=== PATIENT | male | born 1955 | race Caucasian/White ===

== ENCOUNTER 2020-01-04 07:12 | Inpatient (IN) ==
[2020-01-04] MEDS ORDERED: DEXTROSE 50% 25 GM/50 ML VIAL IV PRN ×2 (10:55)
[2020-01-04] MEDS ORDERED: CEFUROXIME INJ 1,500 MG in SYRINGE 1 EACH IV ONE (10:55)
[2020-01-04] MEDS ORDERED: GLUCAGON 1 MG VIAL IM PRN ×2 (10:55)
[2020-01-04] MEDS ORDERED: INSULIN LISPRO 100 UNIT/ML SUBCUT SCH (11:30)
[2020-01-04 11:34] LABS: Basophils # 0.2 10*3/uL (0.0-0.2); Basophils % 1.9 % (0.0-0.8); Eosinophils # 0.5 10*3/uL (0.0-0.87); Eosinophils % 6.3 % (0.00-10.9); Hematocrit 39.3 VOL% (42.0-52.0); Hemoglobin 12.8 GM/DL (14.0-18.0); Immature Granulocytes % 0.2 %; Immature Granulocytes Absolute 0.02 #; Lymphocytes # 1.5 10*3/uL (1.4-4.0); Lymphocytes % 17.9 % (21.2-54.2); Mean Corpuscular HGB Conc 32.6 GM/DL (32-36); Mean Corpuscular Volume 92.7 FL (87-102); Mean Platelet Volume 9.8 FL (9.6-12.0); Monocytes % 13.2 % (1.7-12.7); Neutrophils % 60.5 % (38.7-73.9); Platelet Count 233 T/CUMM (130-400); Red Blood Count 4.24 MC/CUMM (3.8-5.5); White Blood Count 8.3 T/CUMM (4-12)
[2020-01-04 11:47] LABS: ABG Base Excess 2.4 MMOL/L (-2.5-2.5); ABG HCO3 26.5 MMOL/L (20-26); ABG Oxygen Saturation 96.9 % (95-100); ABG PCO2 37.4 MM HG (35-48); ABG PH 7.453 (7.35-7.45); ABG TCO2 22.8 MMOL/L (23-27)
[2020-01-04 12:04] LABS: Albumin 3.6 G/DL (3.4-5.0); Bilirubin,Total 0.5 MG/DL (0.2-1.0); Osmolality,Calculated 276.8 MOS/KG (273-304); Total Protein 7.4 G/DL (6.4-8.3)
[2020-01-04] MEDS: SODIUM CHLORIDE 0.9% 1,000 ML IV SCH (12:54)
[2020-01-04] MEDS: INSULIN LISPRO 100 UNIT/ML SUBCUT SCH ×3 (12:55→21:42)
[2020-01-04] MEDS ORDERED: oxyCODONE/ACETAMINOPHEN 5-325 MG TABLET PO PRN (13:04)
[2020-01-04] MEDS ORDERED: hydrALAZINE 20 MG/1 ML VIAL IV PRN (13:06)
[2020-01-04] MEDS ORDERED: CLORAZEPATE 3.75 MG TABLET PO PRN (13:06)
[2020-01-04] MEDS ORDERED: ZALEPLON 5 MG CAPSULE PO PRN (13:07)
[2020-01-04] MEDS ORDERED: NITROGLYCERIN SL 0.4 MG TABLET SL PRN (13:10)
[2020-01-04] MEDS: CHLORHEXIDINE 4% SOLN 118 ML BOTTLE TOP SCH ×2 (14:18→22:06)
[2020-01-04] MEDS: oxyCODONE/ACETAMINOPHEN 5-325 MG TABLET PO PRN (20:20)
[2020-01-04] MEDS: CHLORHEXIDINE 0.12% ORAL RINSE 60 ML BOTTLE SWISH/SPIT SCH (22:04)
[2020-01-05] MEDS ORDERED: PAPAVERINE 60 MG/2 ML VIAL ONE (04:21)
[2020-01-05] MEDS ORDERED: VANCOMYCIN 1,000 MG VIAL ONE (04:21)
[2020-01-05] MEDS ORDERED: VANCOMYCIN 500 MG VIAL ONE (04:21)
[2020-01-05] MEDS: CHLORHEXIDINE 0.12% ORAL RINSE 60 ML BOTTLE SWISH/SPIT SCH ×2 (08:45→20:46)
[2020-01-05] MEDS: LISINOPRIL/HCTZ 20-25 MG TABLET PO SCH (08:45)
[2020-01-05] MEDS: INSULIN LISPRO 100 UNIT/ML SUBCUT SCH ×4 (08:49→20:23)
[2020-01-05] MEDS: SODIUM CHLORIDE 0.9% 1,000 ML IV SCH (12:02)
[2020-01-05] MEDS: sitaGLIPtin 100 MG TABLET PO SCH (12:03)
[2020-01-05] MEDS: ESCITALOPRAM 10 MG TABLET PO SCH (12:03)
[2020-01-05] MEDS: oxyCODONE/ACETAMINOPHEN 5-325 MG TABLET PO PRN ×2 (12:10→20:48)
[2020-01-05] MEDS: CHLORHEXIDINE 4% SOLN 118 ML BOTTLE TOP SCH ×2 (14:24→19:55)
[2020-01-05] MEDS ORDERED: POTASSIUM CHLORIDE 20 MEQ TABLET PO ONE (22:30)
[2020-01-06] MEDS ORDERED: VANCOMYCIN 1,000 MG VIAL ONE (04:23)
[2020-01-06] MEDS ORDERED: PAPAVERINE 60 MG/2 ML VIAL ONE (04:23)
[2020-01-06] MEDS ORDERED: VANCOMYCIN 500 MG VIAL ONE (04:23)
[2020-01-06] MEDS ORDERED: LIDOCAINE 2% 5 ML VIAL ONE ×2 (05:52→11:20)
[2020-01-06] MEDS ORDERED: SUFentanil 250 MCG/5 ML AMP ONE (05:52)
[2020-01-06] MEDS ORDERED: ETOMIDATE 40 MG/20 ML VIAL IV ONE (05:53)
[2020-01-06] MEDS ORDERED: MIDAZOLAM 10 MG/2 ML VIAL ONE (05:53)
[2020-01-06] MEDS ORDERED: PHENYLEPHRINE DRIP 20 MG/250 ML PREMIX IV ONE (05:53)
[2020-01-06] MEDS ORDERED: CALCIUM CHLORIDE 1,000 MG/10 ML VIAL IV ONE ×2 (05:53→11:35)
[2020-01-06] MEDS ORDERED: HEPARIN/NACL 0.9% 2 UNITS/ML 500 ML IV ONE (05:53)
[2020-01-06] MEDS ORDERED: LACTATED RINGERS 1,000 ML IV ONE (05:54)
[2020-01-06] MEDS ORDERED: SODIUM CHLORIDE 0.9% 250 ML IV ONE (05:54)
[2020-01-06] MEDS ORDERED: AMINOCAPROIC ACID 5,000 MG/20 ML VIAL ONE (05:54)
[2020-01-06] MEDS ORDERED: VECURONIUM 10 MG VIAL IV ONE (05:54)
[2020-01-06] MEDS ORDERED: SODIUM CHLORIDE 0.9% 100 ML IV ONE (05:54)
[2020-01-06] MEDS ORDERED: NITROGLYCERIN DRIP 50 MG/250 ML BOTTLE IV ONE (05:54)
[2020-01-06] MEDS ORDERED: PHENYLEPHRINE 1 MG/10 ML SYRINGE IV ONE (05:54)
[2020-01-06] MEDS ORDERED: CEFUROXIME INJ 1,500 MG in SYRINGE 1 EACH IV ONE (06:00)
[2020-01-06 07:03] LABS: Calcium 9.6 MG/DL (8.5-10.1)
[2020-01-06 07:33] LABS: ABG Base Excess -0.2 MMOL/L (-2.5-2.5); ABG HCO3 24.3 MMOL/L (20-26); ABG PCO2 44.8 MM HG (35-48); ABG PH 7.363 (7.35-7.45); ABG TCO2 22.2 MMOL/L (23-27); Glucose Heart Surgery 174 MG/DL (74-106); Hematocrit Heart Surgery 41.7 PERCENT (42-52); Hemoglobin Heart Surgery 13.6 G/DL (14.0-18.0); Ionized Calcium Arterial 1.19 MMOL/L (1.21-1.46); PCO2 Patient Temp Arterial 44.8 MMHG; PH Patient Temp Arterial 7.363; Patient Temperature 37 CELCIUS; Potassium Heart/CVR 3.7 MMOL/L (3.5-5.1); Sodium Heart/CVR 138 MMOL/L (135-145)
[2020-01-06] MEDS ORDERED: PHENYLEPHRINE DRIP 40 MG/250 ML PREMIX IV ONE (08:16)
[2020-01-06] MEDS ORDERED: EPINEPHrine 1 MG/10 ML SYRINGE ONE (08:17)
[2020-01-06] MEDS ORDERED: ALBUMIN 5% 12.5 GM/250 ML VIAL IV ONE (08:17)
[2020-01-06] MEDS ORDERED: CALCIUM CHLORIDE 1,000 MG/10 ML SYRINGE IV ONE (08:17)
[2020-01-06 08:28] LABS: Apearance,Urine CLEAR (Clear); Bilirubin,Urine Negative (Negative); Blood, Urine Small mg/dL (Negative); Glucose,Urine (UA) Negative (Negative); Ketones,Urine Negative (Negative); Nitrite,Urine Negative (Negative); Protein,Urine Negative; RBC,Urine 1 /HPF (0-4); Squamous Epithelial Cell,Urine Occasional /HPF (0-10); Urine Color Yellow (Yellow); Urine Specific Gravity 1.014 (1.001-1.035); Urine Urobilinogen < 2.0 EU/DL (0.2-1.0); WBC,Urine 1 /HPF (0-6)
[2020-01-06 09:37] LABS: Hematocrit Heart Surgery 29.3 PERCENT (42-52); Hemoglobin Heart Surgery 9.5 G/DL (14.0-18.0); PCO2 Patient Temp Venous 39.3 MM HG; PH Patient Temp Venous 7.397; PO2 Patient Temp Venous 37.5 MM HG; Potassium Heart/CVR 4.4 MMOL/L (3.5-5.1); VBG Base Excess -0.4 MEQ/L (0-4); VBG HCO3 23.7 MEQ/L (24-28); VBG Oxygen Saturation 76.1 %; VBG PCO2 43.3 MMHG (41-51); VBG PH 7.369
[2020-01-06 10:10] LABS: Hematocrit Heart Surgery 31.6 PERCENT (42-52); Hemoglobin Heart Surgery 10.2 G/DL (14.0-18.0); PCO2 Patient Temp Venous 34.9 MM HG; PH Patient Temp Venous 7.421; PO2 Patient Temp Venous 39.2 MM HG; Potassium Heart/CVR 4.3 MMOL/L (3.5-5.1); VBG Base Excess -1.3 MEQ/L (0-4); VBG HCO3 23.1 MEQ/L (24-28); VBG Oxygen Saturation 82.4 %; VBG PCO2 40.3 MMHG (41-51); VBG PH 7.378; VBG PO2 48.3 MMHG (17-40)
[2020-01-06 10:44] LABS: Hematocrit Heart Surgery 31.3 PERCENT (42-52); Hemoglobin Heart Surgery 10.1 G/DL (14.0-18.0); PCO2 Patient Temp Venous 37.8 MM HG; PH Patient Temp Venous 7.42; PO2 Patient Temp Venous 34.7 MM HG; Potassium Heart/CVR 4.8 MMOL/L (3.5-5.1); VBG Base Excess 0.3 MEQ/L (0-4); VBG HCO3 24.3 MEQ/L (24-28); VBG Oxygen Saturation 72.6 %; VBG PCO2 41.6 MMHG (41-51); VBG PH 7.391; VBG PO2 39.9 MMHG (17-40)
[2020-01-06] MEDS: CHLORHEXIDINE 4% SOLN 118 ML BOTTLE TOP SCH (11:07)
[2020-01-06] MEDS: INSULIN LISPRO 100 UNIT/ML SUBCUT SCH ×2 (11:07→11:09)
[2020-01-06] MEDS: LISINOPRIL/HCTZ 20-25 MG TABLET PO SCH (11:08)
[2020-01-06] MEDS: SODIUM CHLORIDE 0.9% 1,000 ML IV SCH (11:08)
[2020-01-06] MEDS: CHLORHEXIDINE 0.12% ORAL RINSE 60 ML BOTTLE SWISH/SPIT SCH ×2 (11:08→20:57)
[2020-01-06] MEDS: ESCITALOPRAM 10 MG TABLET PO SCH (11:08)
[2020-01-06] MEDS: sitaGLIPtin 100 MG TABLET PO SCH (11:08)
[2020-01-06] MEDS ORDERED: THROMBIN TOPICAL (RECOMBINANT) 5,000 UNIT VIAL TOP ONE (11:14)
[2020-01-06] MEDS ORDERED: ALBUTEROL INHALER 8 GM INH ONE (11:16)
[2020-01-06] MEDS ORDERED: DEXTROSE 5% KCL 20 MEQ 20 MEQ/1,000 ML BAG IV ONE (11:20)
[2020-01-06] MEDS ORDERED: MANNITOL 100 GM/500 ML BAG IV ONE (11:20)
[2020-01-06] MEDS ORDERED: ALBUMIN 25% 25 GM/100 ML VIAL IV ONE (11:21)
[2020-01-06] MEDS ORDERED: FUROSEMIDE 20 MG/2 ML VIAL ONE (11:21)
[2020-01-06] MEDS ORDERED: HEPARIN 10,000 UNIT/10 ML VIAL ONE (11:21)
[2020-01-06] MEDS ORDERED: methylPREDNISolone SOD SUC 1,000 MG/8 ML VIAL ONE (11:21)
[2020-01-06] MEDS ORDERED: MAGNESIUM SULFATE 5 GM/10 ML VIAL IV ONE (11:21)
[2020-01-06] MEDS ORDERED: PROTAMINE SULFATE 250 MG/25 ML VIAL IV ONE (11:21)
[2020-01-06] MEDS ORDERED: SODIUM BICARBONATE 50 MEQ/50 ML VIAL IV ONE (11:21)
[2020-01-06] MEDS ORDERED: ALBUTEROL 2.5 MG/3 ML NEB RESP TX ONE (11:36)
[2020-01-06 11:43] LABS: ABG HCO3 21.9 MMOL/L (20-26); ABG Oxygen Saturation 99.6 % (95-100); ABG PCO2 41.5 MM HG (35-48); ABG PH 7.344 (7.35-7.45); ABG TCO2 20.4 MMOL/L (23-27); Glucose Heart Surgery 285 MG/DL (74-106); Hematocrit Heart Surgery 33.9 PERCENT (42-52); Ionized Calcium Arterial 1.23 MMOL/L (1.21-1.46); PCO2 Patient Temp Arterial 41.5 MMHG; PH Patient Temp Arterial 7.344; Patient Temperature 37 CELCIUS; Potassium Heart/CVR 3.8 MMOL/L (3.5-5.1); Sodium Heart/CVR 135 MMOL/L (135-145)
[2020-01-06] MEDS: PHENYLEPHRINE DRIP 40 MG/250 ML PREMIX IV PRN ×2 (12:22→23:56)
[2020-01-06] MEDS ORDERED: CHLORHEXIDINE 4% SOLN 118 ML BOTTLE TOP PRN (12:43)
[2020-01-06] MEDS ORDERED: VECURONIUM 10 MG VIAL IV PRN ×2 (12:43)
[2020-01-06] MEDS ORDERED: MIDAZOLAM 2 MG/2 ML VIAL IV PRN (12:43)
[2020-01-06] MEDS ORDERED: INSULIN REGULAR 100 UNIT/ML IV ONE (12:43)
[2020-01-06] MEDS ORDERED: DEXTROSE 10% 250 ML BAG IV PRN ×2 (12:43)
[2020-01-06] MEDS ORDERED: INSULIN REGULAR 100 UNIT/ML IV PRN (12:43)
[2020-01-06] MEDS ORDERED: ACETAMINOPHEN 650 MG SUPP RECTAL PRN (12:43)
[2020-01-06] MEDS ORDERED: MAGNESIUM SULF RIDER 2 GM in PREMIX 1 EACH IV PRN (12:43)
[2020-01-06] MEDS ORDERED: LACTATED RINGERS 250 ML IV PRN (12:43)
[2020-01-06] MEDS ORDERED: CALCIUM CHLORIDE 1,000 MG/10 ML SYRINGE IV PRN (12:43)
[2020-01-06] MEDS ORDERED: MORPHINE 10 MG/1 ML VIAL IV PRN (12:43)
[2020-01-06] MEDS ORDERED: SODIUM CHLORIDE 0.45% 1,000 ML IV SCH ×2 (12:43)
[2020-01-06] MEDS ORDERED: POTASSIUM CHLORIDE RIDER 10 MEQ in PREMIX 1 EACH IV PRN (12:43)
[2020-01-06] MEDS ORDERED: NITROPRUSSIDE 100 MG in DEXTROSE 5% 250 ML IV PRN (12:43)
[2020-01-06] MEDS ORDERED: MORPHINE 4 MG/1 ML VIAL IV PRN (12:43)
[2020-01-06] MEDS ORDERED: ONDANSETRON 4 MG/2 ML VIAL IV PRN (12:43)
[2020-01-06] MEDS ORDERED: MAGNESIUM SULF RIDER 4 GM in PREMIX 1 EACH IV PRN (12:43)
[2020-01-06 12:47] LABS: ABG Base Excess -2.2 MMOL/L (-2.5-2.5); ABG HCO3 22.5 MMOL/L (20-26); ABG Oxygen Saturation 97.3 % (95-100); ABG PCO2 51.6 MM HG (35-48); ABG PH 7.292 (7.35-7.45); ABG TCO2 22.5 MMOL/L (23-27); Glucose Heart Surgery 260 MG/DL (74-106); Hematocrit Heart Surgery 36.1 PERCENT (42-52); Hemoglobin Heart Surgery 11.7 G/DL (14.0-18.0); Potassium Heart/CVR 3.3 MMOL/L (3.5-5.1)
[2020-01-06 12:49] LABS: Basophils # 0.2 10*3/uL (0.0-0.2); Eosinophils # 0.4 10*3/uL (0.0-0.87); Hematocrit 35.3 VOL% (42.0-52.0); Hemoglobin 11.5 GM/DL (14.0-18.0); Immature Granulocytes % 0.9 %; Immature Granulocytes Absolute 0.18 #; Lymphocytes # 2.5 10*3/uL (1.4-4.0); Lymphocytes % 12.8 % (21.2-54.2); Mean Corpuscular HGB Conc 32.6 GM/DL (32-36); Mean Corpuscular Volume 93.4 FL (87-102); Mean Platelet Volume 10.3 FL (9.6-12.0); Monocytes % 7.6 % (1.7-12.7); Neutrophils % 75.7 % (38.7-73.9); Platelet Count 209 T/CUMM (130-400); Red Blood Count 3.78 MC/CUMM (3.8-5.5); Red Cell Distribution Width 13.1 % (9.3-17.3); White Blood Count 19.9 T/CUMM (4-12)
[2020-01-06] MEDS: POTASSIUM CHLORIDE RIDER 20 MEQ in PREMIX 1 EACH IV PRN ×3 (12:50→23:22)
[2020-01-06] MEDS ORDERED: POTASSIUM CHLORIDE RIDER 100 ML IV ONE (12:53)
[2020-01-06 13:03] LABS: CKMB % 7.9 %
[2020-01-06 13:06] LABS: Troponin I 1.97 NG/ML (0.00-0.045)
[2020-01-06 13:09] LABS: INR 1.2; Partial Thromboplastin Time 30.2 SECS (23.9-33.8)
[2020-01-06 13:10] LABS: Albumin 3.1 G/DL (3.4-5.0); Bilirubin,Total 0.7 MG/DL (0.2-1.0); Calcium 8.5 MG/DL (8.5-10.1); Osmolality,Calculated 288.5 MOS/KG (273-304); Total Protein 5.9 G/DL (6.4-8.3)
[2020-01-06] MEDS: ALBUMIN 5% 12.5 GM in PREMIX 1 EACH IV PRN ×2 (13:20→15:24)
[2020-01-06] MEDS: LACTATED RINGERS 1,000 ML IV PRN ×2 (13:53→20:20)
[2020-01-06 14:03] LABS: ABG Base Excess -2.4 MMOL/L (-2.5-2.5); ABG Oxygen Saturation 97.4 % (95-100); ABG PCO2 42.4 MM HG (35-48); ABG PH 7.353 (7.35-7.45); ABG PO2 108.9 MM HG (80-95); ABG TCO2 24.3 MMOL/L (23-27); Glucose Heart Surgery 215 MG/DL (74-106); Hemoglobin Heart Surgery 12.1 G/DL (14.0-18.0); Potassium Heart/CVR 3.7 MMOL/L (3.5-5.1)
[2020-01-06 14:24] LABS: VBG Base Excess -1.8 MEQ/L (0-4); VBG HCO3 22.5 MEQ/L (24-28); VBG Oxygen Saturation 76.9 %; VBG PCO2 49.1 MMHG (41-51); VBG PH 7.312; VBG PO2 47.7 MMHG (17-40)
[2020-01-06] MEDS ORDERED: SODIUM CHLORIDE 0.9% 1,000 ML IV ONE (14:34)
[2020-01-06] MEDS ORDERED: SEVOFLURANE 1 UNIT/15 MINUTE INH ONE (14:34)
[2020-01-06 15:06] LABS: ABG Base Excess -3.1 MMOL/L (-2.5-2.5); ABG HCO3 21.8 MMOL/L (20-26); ABG Oxygen Saturation 96.8 % (95-100); ABG PCO2 38.6 MM HG (35-48); ABG PO2 98.1 MM HG (80-95); Glucose Heart Surgery 222 MG/DL (74-106); Hemoglobin Heart Surgery 11.8 G/DL (14.0-18.0)
[2020-01-06] MEDS: INSULIN REGULAR DRIP 100 ML IV SCH (15:09)
[2020-01-06 16:02] LABS: ABG Base Excess -3.4 MMOL/L (-2.5-2.5); ABG HCO3 21.6 MMOL/L (20-26); ABG Oxygen Saturation 97.6 % (95-100); ABG PCO2 39.8 MM HG (35-48); ABG PH 7.349 (7.35-7.45); ABG PO2 97.7 MM HG (80-95); ABG TCO2 19.7 MMOL/L (23-27); Glucose Heart Surgery 243 MG/DL (74-106); Hematocrit Heart Surgery 34.7 PERCENT (42-52); Hemoglobin Heart Surgery 11.3 G/DL (14.0-18.0); Potassium Heart/CVR 4.2 MMOL/L (3.5-5.1)
[2020-01-06] MEDS: MIDAZOLAM 10 MG/2 ML VIAL IV PRN ×2 (17:07→19:45)
[2020-01-06 17:21] LABS: ABG Base Excess -3.2 MMOL/L (-2.5-2.5); ABG HCO3 21.7 MMOL/L (20-26); ABG Oxygen Saturation 97.6 % (95-100); ABG PCO2 38.7 MM HG (35-48); ABG PO2 98.1 MM HG (80-95); ABG TCO2 19.7 MMOL/L (23-27); Glucose Heart Surgery 230 MG/DL (74-106); Hematocrit Heart Surgery 34.4 PERCENT (42-52); Hemoglobin Heart Surgery 11.2 G/DL (14.0-18.0); Potassium Heart/CVR 4.1 MMOL/L (3.5-5.1)
[2020-01-06] MEDS ORDERED: HALOPERIDOL 5 MG/ML AMP IV ONE (18:33)
[2020-01-06 18:58] LABS: ABG Base Excess -2.6 MMOL/L (-2.5-2.5); ABG HCO3 22.3 MMOL/L (20-26); ABG PH 7.368 (7.35-7.45); ABG PO2 88.5 MM HG (80-95); ABG TCO2 20.2 MMOL/L (23-27); Glucose Heart Surgery 217 MG/DL (74-106); Hematocrit Heart Surgery 34.5 PERCENT (42-52); Hemoglobin Heart Surgery 11.2 G/DL (14.0-18.0); Potassium Heart/CVR 4.3 MMOL/L (3.5-5.1)
[2020-01-06] MEDS: ALBUTEROL/IPRATROPIUM 3 ML NEB RESP TX SCH (19:46)
[2020-01-06] MEDS: CEFUROXIME INJ 1,500 MG in SODIUM CHLORIDE 0.9% 100 ML IV SCH (19:55)
[2020-01-06 20:40] LABS: CKMB % 9.3 %
[2020-01-06 20:44] LABS: Troponin I 8.72 NG/ML (0.00-0.045)
[2020-01-06 23:08] LABS: ABG Base Excess -1.6 MMOL/L (-2.5-2.5); ABG Oxygen Saturation 96.2 % (95-100); ABG PCO2 37.7 MM HG (35-48); ABG PH 7.392 (7.35-7.45); ABG PO2 78.2 MM HG (80-95); ABG TCO2 20.7 MMOL/L (23-27); Glucose Heart Surgery 166 MG/DL (74-106); Hematocrit Heart Surgery 32.9 PERCENT (42-52); Hemoglobin Heart Surgery 10.6 G/DL (14.0-18.0)
[2020-01-07] MEDS: ALBUMIN 5% 12.5 GM in PREMIX 1 EACH IV PRN (00:33)
[2020-01-07 01:03] LABS: ABG Base Excess -1.2 MMOL/L (-2.5-2.5); ABG HCO3 23.4 MMOL/L (20-26); ABG Oxygen Saturation 97.6 % (95-100); ABG PCO2 36.4 MM HG (35-48); ABG PO2 86.6 MM HG (80-95); ABG TCO2 20.9 MMOL/L (23-27); Glucose Heart Surgery 141 MG/DL (74-106); Hematocrit Heart Surgery 31.9 PERCENT (42-52); Hemoglobin Heart Surgery 10.3 G/DL (14.0-18.0)
[2020-01-07] MEDS: ALBUTEROL/IPRATROPIUM 3 ML NEB RESP TX SCH ×4 (01:17→18:58)
[2020-01-07] MEDS: POTASSIUM CHLORIDE RIDER 20 MEQ in PREMIX 1 EACH IV PRN ×3 (01:30→04:37)
[2020-01-07 02:14] LABS: ABG Base Excess -1.6 MMOL/L (-2.5-2.5); ABG HCO3 23.1 MMOL/L (20-26); ABG Oxygen Saturation 97.1 % (95-100); ABG PCO2 35.3 MM HG (35-48); ABG PH 7.413 (7.35-7.45); ABG TCO2 20.5 MMOL/L (23-27); Glucose Heart Surgery 127 MG/DL (74-106); Potassium Heart/CVR 4.1 MMOL/L (3.5-5.1)
[2020-01-07] MEDS: INSULIN REGULAR DRIP 100 ML IV SCH (02:22)
[2020-01-07 03:11] LABS: ABG Base Excess -1.6 MMOL/L (-2.5-2.5); ABG Oxygen Saturation 96.4 % (95-100); ABG PCO2 35.9 MM HG (35-48); ABG PH 7.407 (7.35-7.45); ABG PO2 79.9 MM HG (80-95); ABG TCO2 20.6 MMOL/L (23-27); Glucose Heart Surgery 115 MG/DL (74-106); Hematocrit Heart Surgery 30.8 PERCENT (42-52); Hemoglobin Heart Surgery 9.9 G/DL (14.0-18.0); Potassium Heart/CVR 4.4 MMOL/L (3.5-5.1)
[2020-01-07 04:24] LABS: ABG Base Excess -2.2 MMOL/L (-2.5-2.5); ABG HCO3 21.5 MMOL/L (20-26); ABG Oxygen Saturation 93.8 % (95-100); ABG PCO2 32.8 MM HG (35-48); ABG PH 7.434 (7.35-7.45); ABG PO2 71.4 MM HG (80-95); ABG TCO2 22.5 MMOL/L (23-27); Basophils % 0.2 % (0.0-0.8); Glucose Heart Surgery 87 MG/DL (74-106); Hematocrit 27.8 VOL% (42.0-52.0); Hemoglobin 9.3 GM/DL (14.0-18.0); Hemoglobin Heart Surgery 10.2 G/DL (14.0-18.0); Immature Granulocytes % 0.4 %; Immature Granulocytes Absolute 0.05 #; Lymphocytes # 0.7 10*3/uL (1.4-4.0); Lymphocytes % 5.4 % (21.2-54.2); Mean Corpuscular HGB Conc 33.5 GM/DL (32-36); Mean Corpuscular Volume 90.8 FL (87-102); Mean Platelet Volume 10.7 FL (9.6-12.0); Monocytes % 6.1 % (1.7-12.7); Neutrophils % 87.9 % (38.7-73.9); Platelet Count 142 T/CUMM (130-400); Potassium Heart/CVR 4.1 MMOL/L (3.5-5.1); Red Blood Count 3.06 MC/CUMM (3.8-5.5); Red Cell Distribution Width 13.4 % (9.3-17.3); White Blood Count 13.6 T/CUMM (4-12)
[2020-01-07] MEDS ORDERED: FUROSEMIDE 40 MG/4 ML VIAL IV ONE ×2 (04:24→05:30)
[2020-01-07 04:44] LABS: Albumin 3.4 G/DL (3.4-5.0); Bilirubin,Direct 0.12 MG/DL (0.0-0.20); Bilirubin,Total 0.4 MG/DL (0.2-1.0); Calcium 8.5 MG/DL (8.5-10.1); Osmolality,Calculated 285.3 MOS/KG (273-304); Total Protein 5.8 G/DL (6.4-8.3)
[2020-01-07 04:58] LABS: CKMB % 12.3 %
[2020-01-07 04:59] LABS: Troponin I 22.8 NG/ML (0.00-0.045)
[2020-01-07] MEDS ORDERED: FUROSEMIDE 40 MG/4 ML VIAL ONE (05:12)
[2020-01-07 05:37] LABS: ABG Base Excess -2.4 MMOL/L (-2.5-2.5); ABG HCO3 22.4 MMOL/L (20-26); ABG Oxygen Saturation 96.5 % (95-100); ABG PCO2 32.4 MM HG (35-48); ABG PH 7.426 (7.35-7.45); ABG PO2 79.2 MM HG (80-95); ABG TCO2 19.4 MMOL/L (23-27); Glucose Heart Surgery 150 MG/DL (74-106); Hematocrit Heart Surgery 30.2 PERCENT (42-52); Hemoglobin Heart Surgery 9.8 G/DL (14.0-18.0); Potassium Heart/CVR 4.9 MMOL/L (3.5-5.1)
[2020-01-07 06:12] LABS: ABG Base Excess -2.4 MMOL/L (-2.5-2.5); ABG HCO3 22.4 MMOL/L (20-26); ABG Oxygen Saturation 95.3 % (95-100); ABG PCO2 31.9 MM HG (35-48); ABG PO2 72.4 MM HG (80-95); ABG TCO2 19.2 MMOL/L (23-27); Glucose Heart Surgery 180 MG/DL (74-106); Hematocrit Heart Surgery 31.3 PERCENT (42-52); Hemoglobin Heart Surgery 10.1 G/DL (14.0-18.0); Potassium Heart/CVR 4.5 MMOL/L (3.5-5.1)
[2020-01-07 07:06] LABS: ABG Base Excess -1.1 MMOL/L (-2.5-2.5); ABG HCO3 23.5 MMOL/L (20-26); ABG Oxygen Saturation 94.5 % (95-100); ABG PCO2 33.3 MM HG (35-48); ABG PH 7.438 (7.35-7.45); ABG PO2 66.7 MM HG (80-95); ABG TCO2 20.5 MMOL/L (23-27); Glucose Heart Surgery 169 MG/DL (74-106); Hematocrit Heart Surgery 30.8 PERCENT (42-52); Potassium Heart/CVR 4.2 MMOL/L (3.5-5.1)
[2020-01-07 07:53] LABS: ABG HCO3 24.4 MMOL/L (20-26); ABG Oxygen Saturation 94.1 % (95-100); ABG PCO2 32.9 MM HG (35-48); ABG PH 7.458 (7.35-7.45); ABG PO2 64.6 MM HG (80-95); ABG TCO2 21.2 MMOL/L (23-27); Glucose Heart Surgery 159 MG/DL (74-106); Hematocrit Heart Surgery 30.3 PERCENT (42-52); Hemoglobin Heart Surgery 9.8 G/DL (14.0-18.0)
[2020-01-07] MEDS ORDERED: ePHEDrine 50 MG/ML AMP ONE (08:08)
[2020-01-07 09:09] LABS: ABG Base Excess -0.9 MMOL/L (-2.5-2.5); ABG HCO3 23.6 MMOL/L (20-26); ABG Oxygen Saturation 93.6 % (95-100); ABG PH 7.453 (7.35-7.45); ABG PO2 64.1 MM HG (80-95); ABG TCO2 20.3 MMOL/L (23-27); Glucose Heart Surgery 179 MG/DL (74-106); Potassium Heart/CVR 4.3 MMOL/L (3.5-5.1)
[2020-01-07] MEDS ORDERED: HYDROmorphone 2 MG/1 ML VIAL IV PRN (10:08)
[2020-01-07] MEDS ORDERED: POTASSIUM CHLORIDE 20 MEQ TABLET PO PRN (10:11)
[2020-01-07] MEDS ORDERED: ALUMINUM/MAGNES/SIMETH MAX STR 30 ML UDCUP PO PRN (10:11)
[2020-01-07] MEDS ORDERED: MAGNESIUM SULF RIDER 2 GM in PREMIX 1 EACH IV PRN (10:11)
[2020-01-07] MEDS ORDERED: MAGNESIUM SULF RIDER 4 GM in PREMIX 1 EACH IV PRN (10:11)
[2020-01-07] MEDS ORDERED: ACETAMINOPHEN 325 MG TABLET PO PRN (10:11)
[2020-01-07] MEDS ORDERED: SODIUM CHLOR 0.45% KCL 20 MEQ 20 MEQ/1,000 ML BAG IV SCH (10:11)
[2020-01-07] MEDS ORDERED: MORPHINE 4 MG/1 ML VIAL IV PRN (10:11)
[2020-01-07] MEDS ORDERED: ZALEPLON 5 MG CAPSULE PO PRN (10:11)
[2020-01-07] MEDS ORDERED: MAGNESIUM HYDROXIDE SUSP 30 ML UDCUP PO PRN (10:11)
[2020-01-07] MEDS ORDERED: ONDANSETRON 4 MG/2 ML VIAL IV PRN (10:11)
[2020-01-07] MEDS ORDERED: DEXTROSE 50% 25 GM/50 ML VIAL IV PRN ×2 (10:11)
[2020-01-07] MEDS ORDERED: GLUCAGON 1 MG VIAL IM PRN ×2 (10:11)
[2020-01-07] MEDS: CEFUROXIME INJ 1,500 MG in SODIUM CHLORIDE 0.9% 100 ML IV SCH (10:14)
[2020-01-07] MEDS: CHLORHEXIDINE 0.12% ORAL RINSE 60 ML BOTTLE SWISH/SPIT SCH ×2 (10:14→21:10)
[2020-01-07] MEDS: INSULIN REGULAR 100 UNIT/ML SUBCUT SCH ×3 (14:35→21:09)
[2020-01-07] MEDS: oxyCODONE/ACETAMINOPHEN 5-325 MG TABLET PO PRN ×3 (14:38→21:50)
[2020-01-07] MEDS: HYDROmorphone 2 MG/1 ML VIAL IV PRN (21:08)
[2020-01-08] MEDS: oxyCODONE/ACETAMINOPHEN 5-325 MG TABLET PO PRN ×6 (01:41→22:31)
[2020-01-08] MEDS: HYDROmorphone 2 MG/1 ML VIAL IV PRN ×2 (02:38→20:39)
[2020-01-08] MEDS: ALBUTEROL/IPRATROPIUM 3 ML NEB RESP TX SCH ×2 (02:47→07:10)
[2020-01-08 05:26] LABS: Basophils % 0.1 % (0.0-0.8); Hematocrit 27.4 VOL% (42.0-52.0); Immature Granulocytes % 0.8 %; Immature Granulocytes Absolute 0.14 #; Lymphocytes # 0.5 10*3/uL (1.4-4.0); Lymphocytes % 2.9 % (21.2-54.2); Mean Corpuscular HGB Conc 32.8 GM/DL (32-36); Mean Corpuscular Volume 92.6 FL (87-102); Mean Platelet Volume 11.3 FL (9.6-12.0); Monocytes % 8.8 % (1.7-12.7); Neutrophils % 87.4 % (38.7-73.9); Platelet Count 156 T/CUMM (130-400); Red Blood Count 2.96 MC/CUMM (3.8-5.5); Red Cell Distribution Width 13.8 % (9.3-17.3); White Blood Count 17.7 T/CUMM (4-12)
[2020-01-08 05:57] LABS: Albumin 3.7 G/DL (3.4-5.0); Bilirubin,Direct 0.12 MG/DL (0.0-0.20); Bilirubin,Indirect 1.2 MG/DL (0.0-1.0); Bilirubin,Total 1.3 MG/DL (0.2-1.0); CKMB % 5.7 %; Calcium 8.4 MG/DL (8.5-10.1); Total Protein 6.9 G/DL (6.4-8.3)
[2020-01-08 05:58] LABS: Troponin I 28.4 NG/ML (0.00-0.045)
[2020-01-08] MEDS ORDERED: FUROSEMIDE 40 MG/4 ML VIAL IV ONE (06:00)
[2020-01-08 07:04] LABS: Band Neutrophils 1 % (0-10); Lymphocytes 4 % (20-55); Segmented Neutrophils 87 % (50-85); Total Cells Counted 100
[2020-01-08 07:05] LABS: Hypochromasia 1+; Microcytosis Slight
[2020-01-08 07:07] LABS: Platelet Estimate Adequate
[2020-01-08] MEDS: INSULIN REGULAR 100 UNIT/ML SUBCUT SCH ×4 (07:58→20:40)
[2020-01-08] MEDS ORDERED: LISINOPRIL/HCTZ 20-25 MG TABLET PO SCH (09:00)
[2020-01-08] MEDS: FERROUS SULFATE 325 MG TABLET PO SCH (09:14)
[2020-01-08] MEDS: DOCUSATE SODIUM 100 MG CAPSULE PO SCH (09:14)
[2020-01-08] MEDS: sitaGLIPtin 100 MG TABLET PO SCH (09:14)
[2020-01-08] MEDS: ESCITALOPRAM 10 MG TABLET PO SCH (09:14)
[2020-01-08] MEDS: PANTOPRAZOLE 40 MG TABLET PO SCH (09:15)
[2020-01-08] MEDS: ASPIRIN EC 325 MG TABLET PO SCH (09:15)
[2020-01-08] MEDS: CHLORHEXIDINE 0.12% ORAL RINSE 60 ML BOTTLE SWISH/SPIT SCH ×2 (09:20→20:43)
[2020-01-08] MEDS: LEVALBUTEROL 0.63 MG/3 ML NEB RESP TX SCH ×2 (13:15→19:15)
[2020-01-08] MEDS ORDERED: AMIODARONE INJ 150 MG in DEXTROSE 5% 100 ML IV ONE (20:30)
[2020-01-08] MEDS ORDERED: AMIODARONE INJ 450 MG in DEXTROSE 5% 241 ML IV SCH (20:40)
[2020-01-08] MEDS: ATORVASTATIN 20 MG TABLET PO SCH (20:40)
[2020-01-08] MEDS ORDERED: METOPROLOL TARTRATE 25 MG TABLET PO SCH ×2 (21:00)
[2020-01-08] MEDS ORDERED: MORPHINE 4 MG/1 ML VIAL IV ONE (23:59)
[2020-01-09] MEDS: oxyCODONE/ACETAMINOPHEN 5-325 MG TABLET PO PRN ×4 (00:10→20:15)
[2020-01-09] MEDS: LEVALBUTEROL 0.63 MG/3 ML NEB RESP TX SCH ×4 (00:17→19:25)
[2020-01-09] MEDS: HYDROmorphone 2 MG/1 ML VIAL IV PRN ×2 (01:46→23:40)
[2020-01-09] MEDS ORDERED: AMIODARONE INJ 450 MG in DEXTROSE 5% 241 ML IV SCH (03:33)
[2020-01-09 05:42] LABS: Basophils % 0.1 % (0.0-0.8); Eosinophils % 0.1 % (0.00-10.9); Hematocrit 31.5 VOL% (42.0-52.0); Hemoglobin 9.6 GM/DL (14.0-18.0); Immature Granulocytes % 0.9 %; Immature Granulocytes Absolute 0.16 #; Lymphocytes # 1.7 10*3/uL (1.4-4.0); Lymphocytes % 9.4 % (21.2-54.2); Mean Corpuscular HGB Conc 30.5 GM/DL (32-36); Mean Corpuscular Volume 99.1 FL (87-102); Mean Platelet Volume 11.3 FL (9.6-12.0); Monocytes % 12.6 % (1.7-12.7); Neutrophils % 76.9 % (38.7-73.9); Platelet Count 197 T/CUMM (130-400); Red Blood Count 3.18 MC/CUMM (3.8-5.5); Red Cell Distribution Width 13.6 % (9.3-17.3); White Blood Count 18.3 T/CUMM (4-12)
[2020-01-09 06:10] LABS: Calcium 8.3 MG/DL (8.5-10.1); Osmolality,Calculated 290.1 MOS/KG (273-304)
[2020-01-09 06:15] LABS: Albumin 3.9 G/DL (3.4-5.0); Bilirubin,Direct 0.15 MG/DL (0.0-0.20); Bilirubin,Total 1.1 MG/DL (0.2-1.0); CKMB % 3.7 %; Calcium 8.3 MG/DL (8.5-10.1); Osmolality,Calculated 289.2 MOS/KG (273-304); Total Protein 7.4 G/DL (6.4-8.3)
[2020-01-09 06:24] LABS: Troponin I 34.7 NG/ML (0.00-0.045)
[2020-01-09] MEDS: INSULIN REGULAR 100 UNIT/ML SUBCUT SCH ×4 (09:04→21:55)
[2020-01-09] MEDS: ASPIRIN EC 325 MG TABLET PO SCH (09:04)
[2020-01-09] MEDS: ESCITALOPRAM 10 MG TABLET PO SCH (09:04)
[2020-01-09] MEDS: METOPROLOL TARTRATE 25 MG TABLET PO SCH ×2 (09:05→21:55)
[2020-01-09] MEDS: PANTOPRAZOLE 40 MG TABLET PO SCH (09:05)
[2020-01-09] MEDS: DOCUSATE SODIUM 100 MG CAPSULE PO SCH (09:05)
[2020-01-09] MEDS: sitaGLIPtin 100 MG TABLET PO SCH (09:05)
[2020-01-09] MEDS: FERROUS SULFATE 325 MG TABLET PO SCH (09:05)
[2020-01-09] MEDS: CHLORHEXIDINE 0.12% ORAL RINSE 60 ML BOTTLE SWISH/SPIT SCH ×2 (09:06→21:55)
[2020-01-09] MEDS: AMIODARONE 200 MG TABLET PO SCH ×2 (09:38→21:54)
[2020-01-09] MEDS: CLORAZEPATE 3.75 MG TABLET PO PRN (14:07)
[2020-01-09] MEDS: ATORVASTATIN 20 MG TABLET PO SCH (21:55)
[2020-01-10] MEDS: LEVALBUTEROL 0.63 MG/3 ML NEB RESP TX SCH ×4 (00:50→18:45)
[2020-01-10] MEDS: oxyCODONE/ACETAMINOPHEN 5-325 MG TABLET PO PRN ×5 (01:32→22:00)
[2020-01-10 07:24] LABS: Basophils % 0.1 % (0.0-0.8); Eosinophils % 0.3 % (0.00-10.9); Hematocrit 29.2 VOL% (42.0-52.0); Hemoglobin 9.3 GM/DL (14.0-18.0); Immature Granulocytes % 0.8 %; Immature Granulocytes Absolute 0.11 #; Lymphocytes % 15.1 % (21.2-54.2); Mean Corpuscular HGB Conc 31.8 GM/DL (32-36); Mean Corpuscular Volume 93.3 FL (87-102); Mean Platelet Volume 11.5 FL (9.6-12.0); Monocytes % 10.1 % (1.7-12.7); Neutrophils % 73.6 % (38.7-73.9); Platelet Count 207 T/CUMM (130-400); Red Blood Count 3.13 MC/CUMM (3.8-5.5); Red Cell Distribution Width 13.2 % (9.3-17.3); White Blood Count 13.4 T/CUMM (4-12)
[2020-01-10 07:57] LABS: Albumin 3.5 G/DL (3.4-5.0); CKMB % 2.8 %; Calcium 8.3 MG/DL (8.5-10.1); Osmolality,Calculated 284.4 MOS/KG (273-304); Total Protein 7.1 G/DL (6.4-8.3)
[2020-01-10 07:58] LABS: Troponin I 25.1 NG/ML (0.00-0.045)
[2020-01-10] MEDS: ESCITALOPRAM 10 MG TABLET PO SCH (08:27)
[2020-01-10] MEDS: METOPROLOL TARTRATE 25 MG TABLET PO SCH ×2 (08:27→22:00)
[2020-01-10] MEDS: DOCUSATE SODIUM 100 MG CAPSULE PO SCH (08:27)
[2020-01-10] MEDS: ASPIRIN EC 325 MG TABLET PO SCH (08:28)
[2020-01-10] MEDS: PANTOPRAZOLE 40 MG TABLET PO SCH (08:28)
[2020-01-10] MEDS: CHLORHEXIDINE 0.12% ORAL RINSE 60 ML BOTTLE SWISH/SPIT SCH ×2 (08:28→22:00)
[2020-01-10] MEDS: FERROUS SULFATE 325 MG TABLET PO SCH (08:28)
[2020-01-10] MEDS: sitaGLIPtin 100 MG TABLET PO SCH (08:28)
[2020-01-10] MEDS: AMIODARONE 200 MG TABLET PO SCH ×2 (08:28→22:00)
[2020-01-10] MEDS: INSULIN REGULAR 100 UNIT/ML SUBCUT SCH ×4 (08:34→22:00)
[2020-01-10] MEDS: CLORAZEPATE 3.75 MG TABLET PO PRN (22:00)
[2020-01-10] MEDS: ATORVASTATIN 20 MG TABLET PO SCH (22:00)
[2020-01-11] MEDS: LEVALBUTEROL 0.63 MG/3 ML NEB RESP TX SCH ×2 (00:20→07:40)
[2020-01-11] MEDS: oxyCODONE/ACETAMINOPHEN 5-325 MG TABLET PO PRN (03:52)
[2020-01-11 06:34] LABS: Basophils % 0.3 % (0.0-0.8); Eosinophils # 0.1 10*3/uL (0.0-0.87); Eosinophils % 1.2 % (0.00-10.9); Hematocrit 29.9 VOL% (42.0-52.0); Hemoglobin 9.6 GM/DL (14.0-18.0); Immature Granulocytes % 1.4 %; Immature Granulocytes Absolute 0.15 #; Lymphocytes # 1.7 10*3/uL (1.4-4.0); Lymphocytes % 16.4 % (21.2-54.2); Mean Corpuscular HGB Conc 32.1 GM/DL (32-36); Mean Corpuscular Volume 93.4 FL (87-102); Mean Platelet Volume 10.8 FL (9.6-12.0); Monocytes % 12.9 % (1.7-12.7); Neutrophils % 67.8 % (38.7-73.9); Platelet Count 255 T/CUMM (130-400); Red Cell Distribution Width 12.9 % (9.3-17.3); White Blood Count 10.5 T/CUMM (4-12)
[2020-01-11 06:56] LABS: Alanine Aminotransferase 117 U/L (16-61); Albumin 3.3 G/DL (3.4-5.0); Alkaline Phosphatase 66 U/L (45-117); Aspartate Amino Transferase 52 U/L (0-37); Bilirubin,Indirect 1.1 MG/DL (0.0-1.0); Blood Urea Nitrogen 44 MG/DL (7-18); Calcium 8.8 MG/DL (8.5-10.1); Estimated Glom Filtration Rate 69 ML/MIN; Glucose 136 MG/DL (74-106); Osmolality,Calculated 287.7 MOS/KG (273-304); Total Protein 7.2 G/DL (6.4-8.3)
[2020-01-11 08:04] VITALS: BP 147/82
[2020-01-11] MEDS: INSULIN REGULAR 100 UNIT/ML SUBCUT SCH (08:50)
[2020-01-11] MEDS ORDERED: hydroCHLOROthiazide 25 MG TABLET PO SCH (09:00)
[2020-01-11] MEDS: DOCUSATE SODIUM 100 MG CAPSULE PO SCH (09:00)
[2020-01-11] MEDS: METOPROLOL TARTRATE 25 MG TABLET PO SCH (09:00)
[2020-01-11] MEDS: PANTOPRAZOLE 40 MG TABLET PO SCH (09:00)
[2020-01-11] MEDS: sitaGLIPtin 100 MG TABLET PO SCH (09:00)
[2020-01-11] MEDS: AMIODARONE 200 MG TABLET PO SCH (09:01)
[2020-01-11] MEDS: ASPIRIN EC 325 MG TABLET PO SCH (09:01)
[2020-01-11] MEDS: ESCITALOPRAM 10 MG TABLET PO SCH (09:01)
[2020-01-11] MEDS: FERROUS SULFATE 325 MG TABLET PO SCH (09:01)
[2020-01-11] MEDS: CHLORHEXIDINE 0.12% ORAL RINSE 60 ML BOTTLE SWISH/SPIT SCH (09:03)
== END 2020-01-11 12:00 | disposition home health service (06) | DRG 236 ==
LOC: N.TELEN 10:51 → N.CVR 01-06 11:58 → N.TELES 01-07 11:43

== ENCOUNTER 2020-02-21 09:35 | Inpatient (IN) ==
[2020-02-21] MEDS ORDERED: DEXTROSE 10% 250 ML BAG IV PRN (14:12)
[2020-02-21] MEDS ORDERED: GLUCAGON 1 MG VIAL IM PRN ×2 (14:12→14:16)
[2020-02-21] MEDS ORDERED: DEXTROSE 50% 25 GM/50 ML VIAL IV PRN (14:16)
[2020-02-21] MEDS ORDERED: SODIUM CHLORIDE 0.9% 1,000 ML IV SCH (14:30)
[2020-02-21 15:19] LABS: Basophils # 0.2 10*3/uL (0.0-0.2); Basophils % 1.7 % (0.0-0.8); Eosinophils # 0.4 10*3/uL (0.0-0.87); Eosinophils % 3.8 % (0.00-10.9); Hematocrit 34.6 VOL% (42.0-52.0); Hemoglobin 11.2 GM/DL (14.0-18.0); Immature Granulocytes % 0.9 %; Immature Granulocytes Absolute 0.09 #; Lymphocytes # 2.7 10*3/uL (1.4-4.0); Lymphocytes % 26.8 % (21.2-54.2); Mean Corpuscular HGB Conc 32.4 GM/DL (32-36); Mean Corpuscular Volume 90.3 FL (87-102); Mean Platelet Volume 9.4 FL (9.6-12.0); Neutrophils % 57.8 % (38.7-73.9); Platelet Count 287 T/CUMM (130-400); Red Blood Count 3.83 MC/CUMM (3.8-5.5); Red Cell Distribution Width 12.7 % (9.3-17.3); White Blood Count 9.9 T/CUMM (4-12)
[2020-02-21 15:37] LABS: Alanine Aminotransferase 19 U/L (16-61); Albumin 3.7 G/DL (3.4-5.0); Alkaline Phosphatase 92 U/L (45-117); Aspartate Amino Transferase 12 U/L (0-37); Bilirubin,Total < 0.39 MG/DL (0.2-1.0); Blood Urea Nitrogen 23 MG/DL (7-18); Calcium 9.3 MG/DL (8.5-10.1); Glucose 137 MG/DL (74-106); Osmolality,Calculated 275.1 MOS/KG (273-304); Total Protein 8.2 G/DL (6.4-8.3)
[2020-02-21 15:40] LABS: Estimated Glom Filtration Rate 0 ML/MIN
[2020-02-21 15:45] LABS: Anisocytosis Slight; Eosinophils 7 % (0-10); Lymphocytes 29 % (20-55); Segmented Neutrophils 52 % (50-85); Total Cells Counted 100
[2020-02-21 15:46] LABS: Macrocytosis Slight; Microcytosis Slight; Platelet Estimate Normal; Reactive Lymphocytes Slight
[2020-02-21] MEDS ORDERED: MAGNESIUM SULF RIDER 2 GM in PREMIX 1 EACH IV ONE (16:56)
[2020-02-21] MEDS: POTASSIUM CHLORIDE 20 MEQ TABLET PO PRN ×3 (17:56→21:23)
[2020-02-21] MEDS: INSULIN LISPRO 100 UNIT/ML SUBCUT SCH ×2 (18:28→21:21)
[2020-02-21] MEDS: VANCOMYCIN INJ 1,500 MG in SODIUM CHLORIDE 0.9% 500 ML IV SCH (18:29)
[2020-02-21] MEDS: MORPHINE 4 MG/1 ML VIAL IV PRN (21:30)
[2020-02-22] MEDS: POTASSIUM CHLORIDE 20 MEQ TABLET PO PRN (01:02)
[2020-02-22 06:52] LABS: Calcium 8.8 MG/DL (8.5-10.1)
[2020-02-22] MEDS: INSULIN LISPRO 100 UNIT/ML SUBCUT SCH ×4 (07:50→22:08)
[2020-02-22] MEDS: hydroCHLOROthiazide 25 MG TABLET PO SCH (08:17)
[2020-02-22] MEDS: ASPIRIN EC 325 MG TABLET PO SCH (08:17)
[2020-02-22] MEDS: sitaGLIPtin 25 MG TABLET PO SCH (08:17)
[2020-02-22] MEDS: ESCITALOPRAM 10 MG TABLET PO SCH (08:17)
[2020-02-22] MEDS: VANCOMYCIN INJ 1,500 MG in SODIUM CHLORIDE 0.9% 500 ML IV SCH (18:03)
[2020-02-22] MEDS: ZALEPLON 5 MG CAPSULE PO PRN (22:07)
[2020-02-22] MEDS: ATORVASTATIN 40 MG TABLET PO SCH (22:07)
[2020-02-23 06:24] LABS: Basophils # 0.1 10*3/uL (0.0-0.2); Basophils % 1.8 % (0.0-0.8); Eosinophils # 0.5 10*3/uL (0.0-0.87); Eosinophils % 7.2 % (0.00-10.9); Hematocrit 31.8 VOL% (42.0-52.0); Immature Granulocytes % 0.8 %; Immature Granulocytes Absolute 0.06 #; Lymphocytes # 1.7 10*3/uL (1.4-4.0); Lymphocytes % 23.9 % (21.2-54.2); Mean Corpuscular HGB Conc 31.4 GM/DL (32-36); Mean Corpuscular Volume 90.9 FL (87-102); Monocytes % 9.1 % (1.7-12.7); Neutrophils % 57.2 % (38.7-73.9); Platelet Count 227 T/CUMM (130-400); Red Cell Distribution Width 12.8 % (9.3-17.3); White Blood Count 7.1 T/CUMM (4-12)
[2020-02-23 06:46] LABS: Calcium 8.8 MG/DL (8.5-10.1); Osmolality,Calculated 277.7 MOS/KG (273-304)
[2020-02-23] MEDS: INSULIN LISPRO 100 UNIT/ML SUBCUT SCH ×4 (08:26→21:17)
[2020-02-23] MEDS: sitaGLIPtin 25 MG TABLET PO SCH (09:19)
[2020-02-23] MEDS: ASPIRIN EC 325 MG TABLET PO SCH (09:19)
[2020-02-23] MEDS: hydroCHLOROthiazide 25 MG TABLET PO SCH (09:19)
[2020-02-23] MEDS: ESCITALOPRAM 10 MG TABLET PO SCH (09:19)
[2020-02-23] MEDS: VANCOMYCIN INJ 1,500 MG in SODIUM CHLORIDE 0.9% 500 ML IV SCH (17:34)
[2020-02-23] MEDS: ZALEPLON 5 MG CAPSULE PO PRN (20:55)
[2020-02-23] MEDS: ATORVASTATIN 40 MG TABLET PO SCH (20:56)
[2020-02-24 07:24] LABS: Osmolality,Calculated 273.1 MOS/KG (273-304)
[2020-02-24] MEDS: ESCITALOPRAM 10 MG TABLET PO SCH (09:12)
[2020-02-24] MEDS: hydroCHLOROthiazide 25 MG TABLET PO SCH (09:12)
[2020-02-24] MEDS: sitaGLIPtin 25 MG TABLET PO SCH (09:12)
[2020-02-24] MEDS: ASPIRIN EC 325 MG TABLET PO SCH (09:12)
[2020-02-24] MEDS: INSULIN LISPRO 100 UNIT/ML SUBCUT SCH ×4 (09:13→20:30)
[2020-02-24] MEDS: VANCOMYCIN INJ 1,500 MG in SODIUM CHLORIDE 0.9% 500 ML IV SCH (18:00)
[2020-02-24] MEDS: ATORVASTATIN 40 MG TABLET PO SCH (20:36)
[2020-02-25 07:45] LABS: Calcium 8.9 MG/DL (8.5-10.1); Osmolality,Calculated 276.8 MOS/KG (273-304)
[2020-02-25] MEDS: INSULIN LISPRO 100 UNIT/ML SUBCUT SCH ×4 (08:09→21:10)
[2020-02-25] MEDS: ASPIRIN EC 325 MG TABLET PO SCH (08:52)
[2020-02-25] MEDS: sitaGLIPtin 25 MG TABLET PO SCH (08:52)
[2020-02-25] MEDS: hydroCHLOROthiazide 25 MG TABLET PO SCH (08:52)
[2020-02-25] MEDS: ESCITALOPRAM 10 MG TABLET PO SCH (08:53)
[2020-02-25] MEDS: VANCOMYCIN INJ 1,500 MG in SODIUM CHLORIDE 0.9% 500 ML IV SCH (17:55)
[2020-02-25] MEDS: ATORVASTATIN 40 MG TABLET PO SCH (21:10)
[2020-02-25] MEDS: MORPHINE 4 MG/1 ML VIAL IV PRN (21:51)
[2020-02-26 04:02] LABS: Calcium 8.5 MG/DL (8.5-10.1); Osmolality,Calculated 276.8 MOS/KG (273-304)
[2020-02-26] MEDS: POTASSIUM CHLORIDE 20 MEQ TABLET PO PRN (05:15)
[2020-02-26] MEDS: INSULIN LISPRO 100 UNIT/ML SUBCUT SCH ×4 (07:34→21:16)
[2020-02-26] MEDS: ESCITALOPRAM 10 MG TABLET PO SCH (09:01)
[2020-02-26] MEDS: ASPIRIN EC 325 MG TABLET PO SCH (09:02)
[2020-02-26] MEDS: sitaGLIPtin 25 MG TABLET PO SCH (09:02)
[2020-02-26] MEDS: hydroCHLOROthiazide 25 MG TABLET PO SCH (09:02)
[2020-02-26] MEDS: VANCOMYCIN INJ 1,500 MG in SODIUM CHLORIDE 0.9% 500 ML IV SCH (18:15)
[2020-02-26] MEDS: ATORVASTATIN 40 MG TABLET PO SCH (21:14)
[2020-02-26] MEDS: MORPHINE 4 MG/1 ML VIAL IV PRN (21:16)
[2020-02-27 06:45] LABS: Basophils # 0.1 10*3/uL (0.0-0.2); Basophils % 2.1 % (0.0-0.8); Eosinophils # 0.4 10*3/uL (0.0-0.87); Hematocrit 31.9 VOL% (42.0-52.0); Hemoglobin 10.5 GM/DL (14.0-18.0); Immature Granulocytes % 0.3 %; Immature Granulocytes Absolute 0.02 #; Lymphocytes % 32.2 % (21.2-54.2); Mean Corpuscular HGB Conc 32.9 GM/DL (32-36); Mean Corpuscular Volume 89.1 FL (87-102); Mean Platelet Volume 9.7 FL (9.6-12.0); Monocytes % 10.5 % (1.7-12.7); Neutrophils % 47.9 % (38.7-73.9); Platelet Count 199 T/CUMM (130-400); Red Blood Count 3.58 MC/CUMM (3.8-5.5); Red Cell Distribution Width 12.9 % (9.3-17.3); White Blood Count 6.3 T/CUMM (4-12)
[2020-02-27 07:13] LABS: Calcium 9.2 MG/DL (8.5-10.1); Osmolality,Calculated 277.7 MOS/KG (273-304)
[2020-02-27] MEDS: INSULIN LISPRO 100 UNIT/ML SUBCUT SCH (08:31)
[2020-02-27] MEDS: ASPIRIN EC 325 MG TABLET PO SCH (08:32)
[2020-02-27] MEDS: hydroCHLOROthiazide 25 MG TABLET PO SCH (08:33)
[2020-02-27] MEDS: ESCITALOPRAM 10 MG TABLET PO SCH (08:33)
[2020-02-27] MEDS: sitaGLIPtin 25 MG TABLET PO SCH (09:35)
[2020-02-27 12:01] VITALS: BP 133/54
== END 2020-02-27 13:15 | disposition home or self-care (01) | DRG 920 ==
LOC: N.TELEN 14:40